=== PATIENT | male | born 1975 | race African-American/Black ===

== ENCOUNTER 2023-06-06 07:02 | Day surgery (SDC) | payer BC ==
[2023-06-02 12:41] VITALS: BMI 31.7
[2023-06-06] MEDS ORDERED: Midazolam HCl 2 mg/2 ml Vial ONE (08:56)
[2023-06-06] MEDS ORDERED: PROPOFOL 80 ML ONE (08:56)
== END 2023-06-06 10:16 | disposition home or self-care (01) ==
LOC: CSHSDC 07:02
PROVIDERS: ATTEND Internal Medicine Gastroenterology
PROC: 0DJD8ZZ Inspection of Lower Intestinal Tract, Via Natural or Artificial Opening Endoscopic (ICD-10-PCS; principal; 2023-06-06)
DX: Z12.11 Encounter for screening for malignant neoplasm of colon (principal); K57.30 Diverticulosis of large intestine without perforation or abscess without bleeding; K64.9 Unspecified hemorrhoids; E78.5 Hyperlipidemia, unspecified; F10.90 Alcohol use, unspecified, uncomplicated; F17.210 Nicotine dependence, cigarettes, uncomplicated
CPT/HCPCS: J2250; J2704